=== PATIENT | female | born 1990 | race Caucasian/White ===

== ENCOUNTER 2017-09-20 09:18 | Outpatient (CLI) | payer OTHER ==
[2017-09-23] MEDS ORDERED: SYNTHROID100 MCG PO (10:20)
[2017-09-23] MEDS ORDERED: CARAFATE1 GM/10 ML PO (10:21)
== END 2017-09-20 09:20 | disposition home or self-care (01) ==
LOC: EKG 09:18
DX: I10 Essential (primary) hypertension (principal)

== ENCOUNTER 2017-09-27 05:26 | Day surgery (SDC) | payer OTHER ==
[~2017-09-27 05:26] MED LIST: CARAFATE1 GM/10 ML PO; SYNTHROID100 MCG PO
== END 2017-09-27 10:05 | disposition home or self-care (01) ==
LOC: CIR.AMB 05:26
DX: M67.441 Ganglion, right hand (principal)